=== PATIENT | male | born 1940 | race Caucasian/White ===

== ENCOUNTER 2018-03-24 12:41 | Emergency (ER) | payer OTHER ==
[~2018-03-24] VITALS: Ht 172.7 cm; Wt 81.6 kg
[2018-03-24 12:47] VITALS: Ht 172.7 cm; Wt 81.6 kg
[2018-03-24 14:19] LABS: BASOPHIL % 0.1 % (0-2); PLATELET COUNT 239 x10^3mcL (130-400); RED CELL DISTRIBUTION WIDTH 13.8 % (11.5-14.5)
[2018-03-24 14:25] LABS: CALCIUM 8.8 mg/dL (8.5-10.1); CARBON DIOXIDE 27.6 mmol/L (21-32); CHLORIDE SERUM 103 mmol/L (98-107); CREATININE SERUM 1.6 mg/dL (0.7-1.3); GLUCOSE SERUM 115 mg/dL (74-106); POTASSIUM SERUM 3.1 mmol/L (3.5-5.1); SODIUM SERUM 141 mmol/L (136-145)
[2018-03-24 14:54] LABS: ALKALINE PHOSPHATASE 73 U/L (46-116); ALT/SGPT 76 U/L (16-63); AST/SGOT 41 U/L (15-37); BILIRUBIN TOTAL 0.43 mg/dL (0.20-1.00); TOTAL PROTEIN, SERUM 7.7 g/dL (6.4-8.2)
[2018-03-24 14:56] LABS: ALBUMIN 3.2 g/dL (3.4-5.0)
[2018-03-24 15:58] LABS: UA SPECIFIC GRAVITY 1.015 (1.005-1.035); microscopic required? YES; urine erythrocyte 1+ (NEGATIVE)
[2018-03-24 16:05] LABS: CK-MB 0.9 ng/mL (0-3.6)
[2018-03-24 16:24] VITALS: BP 110/84
== END 2018-03-24 16:24 | disposition home or self-care (01) ==
LOC: ED 12:41
PROVIDERS: Emergency Medicine
DX: R55 Syncope and collapse (principal); R42 Dizziness and giddiness; R11.0 Nausea; R68.83 Chills (without fever); I10 Essential (primary) hypertension
CPT/HCPCS: 83880; J7030; Q0092